=== PATIENT | male | born 1990 | race Caucasian/White ===

== ENCOUNTER 2017-01-03 20:10 | Emergency (ER) | payer OTHER ==
[2017-01-03] MEDS: KETOROLAC TROMETHAMINE 30 MG/1ML VIAL IVP ONE (20:30)
[2017-01-03] MEDS: ASPIRIN 81 MG CHEW TAB PO ONE (20:30)
[2017-01-03 20:47] LABS: EOSINOPHILS % 1.2 % (0.0-6.8); MEAN CORPUSCULAR HEMOGLOBIN 30.7 pg (28.0-34.0); MONOCYTES % 5.4 % (0.0-11.0); NEUTROPHILS # 5.2 # k/uL (1.4-7.7); eGFR (African) > 60; eGFR (Non-African) > 60
--- NOTE | 2017-01-03 21:22 | ED Physician Documentation ---
Chest Pain - HISTORIAN Historian: patient - HPI Stated Complaint: chest pain Chief Complaint: Chest Pain Additional Information: constant, no radiation, no soa, increased with movement, no diaphoresis, no nausea Onset: minutes (30) Timing: sudden onset Duration: constant Last known Well Date: 01/03/17 Last Known Well Time: 19:30 Last known Well Code/Unknown Code: Unknown Context: activity Severity: mild Quality: aching Front/Back of Body, Lg (Color): 1 - pain Chest Pain Radiation: no radiation Chest Pain Signs/Symptoms: denies: nausea, vomiting, diaphoresis, cool extremities, dizziness, dyspnea, tachypnea, tachycardia, hypotension, palpitations, weakness Worsened By: exertion Relieved By: nothing Further Comments: no - ROS CONST: none MS/LYMPH: none GI/: none EYES/ENT: none SKIN/ENDO: none NEURO/PSYCH: none - PAST HX [place] risk factors: no pertinent history DVT/PE Risk Factors: none TAD/AAA risk factors: none Neuro deficit: none GI disease: none Lung disease: none Surgeries/Procedures: other (wisdom tooth extraction) Immunizations: referred to PCP Allergies/Adverse Reactions: Allergies Allergy/AdvReac Type Severity Reaction Status Date / Time No Known Allergies Allergy Verified 01/03/17 20:29 Home Medications: Ambulatory Orders Medication Instructions Recorded NK [NK] 01/03/17 - SOCIAL HX Smoking History: non-smoker Alcohol Use: none Drug Use: none - FAMILY HX Family HX: CAD over 55 - VITAL SIGNS Vital Signs: Vital Signs Temp Pulse Resp BP Pulse Ox 98.2 F 84 21 155/93 95 01/03/17 20:10 01/03/17 20:25 01/03/17 20:10 01/03/17 20:10 01/03/17 20:25 - REVIEWED ASSESSMENTS Nursing Assessment Reviewed: Yes Vitals Reviewed: Yes Progress - Results/Orders Results/Orders: cardiac workup ordered - Progress Progress: Pt given Toradol 30 mg ivp in ER with improvement in pain. Critical Care Note - Critical Care Note Total Time (mins): 0 ED Results Lab/Radiology - Lab Results Lab Results: Lab Results 01/03/17 01/03/17 01/03/17 20:29 20:29 20:29 WBC 10.60 K/ul K/ul (4.00-12.00) RBC 4.77 M/ul M/ul (3.90-5.20) Hgb 14.6 g/dL g/dL (12.0-18.0) Hct 41.1 % % (37.0-53.0) MCV 86.0 fl fl (80.0-100.0) MCH 30.7 pg pg (28.0-34.0) MCHC 35.6 g/dL g/dL (30.0-36.0) RDW 13.0 % % (11.3-14.3) Plt Count 309 K/mm3 K/mm3 (130-400) Neut % (Auto) 48.6 % % (39.0-79.0) Lymph % (Auto) 42.2 % % (16.0-50.0) Webster % (Auto) 5.4 % % (0.0-11.0) Eos % (Auto) 1.2 % % (0.0-6.8) Baso % (Auto) 1.0 (0.0-1.5) Neut # (Auto) 5.2 # k/uL # k/uL (1.4-7.7) Lymph # (Auto) 4.5 # k/uL H # k/uL (0.6-4.0) Webster # (Auto) 0.6 # k/uL # k/uL (0.0-0.9) Eos # (Auto) 0.1 # k/uL # k/uL (0.0-0.6) Baso # (Auto) 0.1 # k/uL # k/uL (0.0-0.5) Reactive Lymphs % 1.5 % % (0.0-5.0) Reactive Lymphs # 0.2 # k/uL # k/uL (0.0-0.8) Sodium 140 mmol/L mmol/L (136-145) Potassium 3.7 mmol/L mmol/L (3.5-5.0) Chloride 102 mmol/L mmol/L (98-110) Carbon Dioxide 32 mmol/L mmol/L (20-32) BUN 15 mg/dL mg/dL (10-26) Creatinine 1.0 mg/dL mg/dL (0.4-1.5) Estimated Creat Clear 157 Est GFR ( Amer) > 60 (60 - ) Est GFR (Non-Af Amer) > 60 (60 - ) Glucose 109 mg/dL H mg/dL (70-99) Calcium 10.2 mg/dL mg/dL (8.5-10.5) Total Bilirubin 0.6 mg/dL mg/dL (0.2-1.2) AST 22 U/L U/L (0-41) ALT 19 U/L U/L (0-45) Alkaline Phosphatase 60 U/L U/L (46-116) Troponin I < 0.03 ng/mL L ng/mL (0.03-0.06) Total Protein 7.8 g/dL g/dL (6.0-8.5) Albumin 5.0 g/dL g/dL (3.0-5.5) - Radiology Radiology Impressions: cxr neg - Orders Orders: ED Orders Category Date Time Status Continuous EKG monitoring Q30M Care 01/03/17 20:25 Active Continuous Pulse Oximetry Q30M Care 01/03/17 20:25 Active CHEST 1 VIEW [RAD] Stat Exams 01/03/17 20:25 Ordered CBC/PLATELET/DIFF Stat Lab 01/03/17 20:29 Completed CMP Routine Lab 01/03/17 20:29 Completed TROPONIN I (cTnI) Stat Lab 01/03/17 20:29 Completed Aspirin Med 01/03/17 20:25 Discontinued 324 mg PO NOW ONE Ketorolac Tromethamine [Toradol] Med 01/03/17 20:26 Discontinued 30 mg IVP NOW ONE EKG WITH COMPARISON Stat Ther 01/03/17 20:25 Ordered Chest Pain Physical Exam - EXAM General Appearance: mild distress EENT: eye inspection normal, ENT inspection normal, pharynx normal, no signs of dehydration, JAYDE, no nystagmus, TM's nml Neck: nml inspection, no carotid bruit Respiratory: no resp. distress, nml breath sounds, other (left pectoral area tender to palpation exactly reproducing chest pain) CVS: reg. rate & rhythm, no murmur, no gallop, no friction rub, pulses full, pulses equal Abdomen: soft, no organomegaly, normal bowel sounds, no abdominal bruit, no distension, non-tender Skin: warm/dry Extremities: non-tender, normal range of motion, no evidence of injury, no edema Neuro: oriented X3, CN's nml as tested, motor nml, sensation nml, mood/affect nml, cognition normal Discharge Clincal Impression: Chest wall pain Referrals: Primary Doctor,No [Primary Care Provider] - 2 Days Home Medications: Ambulatory Orders NK [NK] 01/03/17 Comments: Discharged in stable condition to care of Condition: Stable Disposition: 01 HOME, SELF-CARE Decision to Admit: NO Decision Time: 21:15
[2017-01-03 22:04] VITALS: BP 135/82
--- NOTE | 2017-01-04 00:17 | Diagnostic Imaging Report ---
TANJA URBAN [facility] [address] [facility] [address], [place]. [address] Report Submission Date: Jan 03, 2017 8:50:17 PM CDT Patient Study Name: MIGUEL CRAVEN Date: Jan 03, 2017 8:32:02 PM CDT Modality Type: CR Gender: M Description: CHEST : 89 Institution: [facility] Physician: TANJA URBAN Examination: Portable chest History: Chest discomfort Findings: Single view of the chest demonstrates a normal cardiac and mediastinal silhouette. Lung lorenzo without focal infiltrate. No effusion. Osseous structures are appropriate for age. Impression: No acute process. Electronically signed on Jan 03, 2017 8:50:17 PM CDT by: Reynold NICHOLE
== END 2017-01-03 21:35 | disposition home or self-care (01) ==
LOC: ED 20:10
DX: R07.89 Other chest pain (principal)
CPT/HCPCS: 71010; 80053; 84484; 85025; 93005; J1885; 96374; 99283; S1016